=== PATIENT | male | born 1975 | race Caucasian/White ===

== ENCOUNTER 2016-08-15 22:41 | Emergency (ER) | payer MEDICAID, OTHER ==
[~2016-08-15] VITALS: Ht 175.3 cm; Wt 88.0 kg
[~2016-08-15 22:41] MED LIST: ALPR0.5T PO
[2016-08-15 22:48] VITALS: Ht 175.3 cm; Wt 88.0 kg
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
[2016-08-16] MEDS ORDERED: NAPR-260 PO (02:22)
--- NOTE | 2016-08-16 02:41 | RADRPT ---
PROCEDURE: Ultrasound examination of the right upper extremity veins with Doppler. CLINICAL INDICATION: Pain and swelling. TECHNIQUE: Multiple sonographic images of the right upper extremity veins were performed with gra y scale and color Doppler. COMPARISON: None. FINDINGS: The right internal jugular, subclavian, axillary, brachial, basilic, cephalic, radial and ulnar vein s demonstrate normal color flow, waveforms and compression. There is no evidence of deep venous thr ombosis. IMPRESSION: No evidence of deep venous thrombosis within the right upper extremity veins. .Jus Pabon MD, Date Time Electronically viewed and signed by .Jus Pabon MD, on 08/16/2016 02:41 .T/
--- NOTE | 2016-08-16 02:51 | QN ---
Documentation Comment Aby ALVARES signed out this patient to me pending ultrasound results, this was reviewed, it was normal, no blood clots noted, no dizziness from both is noted. Patient is discharged according to Aby Cerda instructions. Patient was advised vomit primary care doctor in 1-2 days for reevaluation of symptoms. Patient is stable upon discharge. PROCEDURE: Ultrasound examination of the right upper extremity veins with Doppler. CLINICAL INDICATION: Pain and swelling. TECHNIQUE: Multiple sonographic images of the right upper extremity veins were performed with may scale and color Doppler. COMPARISON: None. FINDINGS: The right internal jugular, subclavian, axillary, brachial, basilic, cephalic, radial and ulnar veins demonstrate normal color flow, waveforms and compression. There is no evidence of deep venous thrombosis. IMPRESSION: No evidence of deep venous thrombosis within the right upper extremity veins. .Jus Pabon MD, MD Date Time Electronically viewed and signed by .Jus Pabon MD, MD on 08/16/2016 02:41 .T/ CC: MELISSA CERDA PA-C, CARLA MAE T. NP Aug 16, 2016 02:51
== END 2016-08-16 03:30 | disposition home or self-care (01) ==
LOC: FTE 22:41
DX: R20.0 Anesthesia of skin (principal); R20.2 Paresthesia of skin
CPT/HCPCS: 93971; Z7502

== ENCOUNTER 2016-11-06 15:08 | Emergency (ER) | payer MEDICAID, OTHER ==
[~2016-11-06] VITALS: Ht 157.5 cm; Wt 88.0 kg
[~2016-11-06 15:08] MED LIST changes: +NAPR-260 PO
[2016-11-06 15:13] VITALS: Ht 157.5 cm; Wt 88.0 kg
[2016-11-06 19:18] LABS: ADD SCAN DIFF NO
[2016-11-06 19:22] LABS: BASOPHILS % 0.4 % (0.0-2.0); EOSINOPHILS # 0.1 10^3/ul (0.0-0.5); EOSINOPHILS % 1.7 % (0.0-7.0); HEMATOCRIT 42.3 % (42.0-52.0); LYMPHOCYTES # 2.6 10^3/ul (0.8-2.9); LYMPHOCYTES % 31.5 % (15.0-51.0); MEAN CORPUSCULAR HEMOGLOBIN 32.2 pg (29.0-33.0); MEAN CORPUSCULAR HGB CONC 35.5 g/dl (32.0-37.0); MEAN CORPUSCULAR VOLUME 90.8 fl (82.0-101.0); MEAN PLATELET VOLUME 10.8 fl (7.4-10.4); MONOCYTE # 0.5 10^3/ul (0.3-0.9); MONOCYTES % 6.3 % (0.0-11.0); NEUTROPHIL # 4.9 10^3/ul (1.6-7.5); NEUTROPHILS % 59.7 % (39.0-77.0); PLATELET COUNT 205 10^3/UL (140-415); RED BLOOD COUNT 4.66 10^6/ul (4.70-6.10); RED CELL DISTRIBUTION WIDTH 11.3 % (11.5-14.5); WHITE BLOOD COUNT 8.2 10^3/ul (4.8-10.8)
[2016-11-06 19:24] LABS: ADD UMIC NO; URINE BILIRUBIN (Dip) NEGATIVE (NEGATIVE); URINE BLOOD (Dip) NEGATIVE (NEGATIVE); URINE COLOR LT. YELLOW (YELLOW); URINE GLUCOSE (Dip) NEGATIVE (NEGATIVE); URINE KETONES (Dip) NEGATIVE (NEGATIVE); URINE LEUKOCYTE ESTERASE (Dip) NEGATIVE (NEGATIVE); URINE NITRITE (Dip) NEGATIVE (NEGATIVE); URINE TOTAL PROTEIN (Dip) NEGATIVE (NEGATIVE); URINE UROBILINOGEN (Dip) 0.2 E.U./dL (0.1-1.0)
[2016-11-06 19:31] LABS: ALBUMIN 5.1 g/dl (3.3-4.9); INR 0.99; PROTIME 13.1 Sec (12.2-14.2)
[2016-11-06 19:32] LABS: PARTIAL THROMBOPLASTIN TIME 28.9 Sec (25.0-35.0); POTASSIUM 3.6 mmol/L (3.5-5.1)
[2016-11-06 19:34] LABS: ALBUMIN/GLOBULIN RATIO 1.82; BILIRUBIN,INDIRECT 0.8 mg/dl (0-1.1); BILIRUBIN,TOTAL 0.8 mg/dl (0.2-1.3); CREATININE 1.04 mg/dl (0.61-1.24); TOTAL PROTEIN 7.9 g/dl (6.1-8.1)
[2016-11-06 19:35] LABS: CALCIUM 9.4 mg/dl (8.4-10.2)
--- NOTE | 2016-11-06 20:18 | RADRPT ---
PROCEDURE: CT scan of the abdomen and pelvis with and without IV contrast. CLINICAL INDICATION: Abdominal pain. TECHNIQUE: Thin section axial, coronal and sagittal images were performed through the abdomen and pelvis without contrast and then following the injection of 90 cc of Omnipaque-300 Low-dose protoco l imaging was utilized. One or more of the following dose reduction techniques were used: - Automated exposure control. - Adjustment of the mA and/or kV according to patient size. Use of iterative reconstruction technique. Radiation Dose: CTDI: 37.2 and DLP: 602 COMPARISON: No. FINDINGS: Lungs and pleural space: Normal. Heart: Normal. The liver, common bile duct and gallbladder: There is mild fatty infiltration of the liver. The ella er measures 17.6 cm AP. No hepatic mass or intrahepatic biliary ductal dilatation is identified. T he gallbladder and gallbladder wall are normal. The hepatic and portal veins are patent. Pancreas: Normal. Gastrointestinal: The stomach and small bowel loops are normal. There is fecal material in the asce nding and transverse colon consistent with constipation. There is no evidence of diverticulosis or diverticulitis. There is fecal material in the rectal ampulla. The vermiform appendix is not visua lized but there are no secondary signs of appendicitis. Kidneys and bladder : Third tiny subcapsular cyst off the inferior pole of the right kidney. The ki dneys are otherwise normal. No additional workup is needed. The adrenal glands and urinary bladder are normal. There is a left inguinal hernia which contains only fat. There is a small midline umb ilical hernia. Adrenal glands: Normal. Spleen: Normal. Lymph nodes: Normal. Reproductive system: The seminal vesicles and prostate gland are normal. Bony elements: There are small degenerative osteophytes in the lumbar spine. There is no evidence o f spondylolysis or spondylolisthesis. No acute bony fracture or bone metastasis is identified. Vasculature: Normal. IMPRESSION: 1. No acute intra-abdominal process is identified. 2. Constipation with fecal material in the ascending colon, transverse colon and rectal ampulla. RPTAT:AAJJ Physician Melvin Date Time Electronically viewed and signed by Physician Melvin on 11/06/2016 20:18 TRISTA/
[2016-11-06 20:54] VITALS: BP 118/74; PULSE 74; RESP 16
--- NOTE | 2016-11-06 22:25 | ERD ---
ER Documentation Chief Complaint Date/Time DATE: 11/06/16 TIME: 22:18 Chief Complaint Complains of right sided abdominal pain HPI 40-year-old male with no significant past medical history presents to the ED complaining of right abdominal pain associated with a rash that started 4 days after receiving a cervical epidural injection. States that he originally had a steroid injection on October 24, 2016 with no reaction. States that he also received 2 more injections on November 02, 2016 and states that it could be an allergic reaction to the injections. States that he initially started to feel numbness and tingling on the right side of his abdomen down his legs. Then he started to feel bloating sensation associated with nausea. Denies any vomiting , diarrhea, chest pain, shortness of breath, wheezing, fever, chills. Denies any blunt abdominal trauma. Patient reports normal daily bowel movements. Denies any constipation. ROS All systems reviewed and are negative except as per history of present illness. Medications Home Meds Active Scripts Naproxen* (Naprosyn*) 500 Mg Tablet, 500 MG PO BID Y for PAIN AND/OR INFLAMMATION, #30 TAB Prov:MELISSA CERDA PA-C 08/16/16 Alprazolam* (Xanax*) 0.5 Mg Tab, 0.5 MG PO Q8H Y for ANXIETY, #14 TAB Prov:OZIEL ALCANTAR DO 12/13/15 Allergies Allergies: Coded Allergies: No Known Allergy (Unverified , 12/13/15) PMhx/Soc History of Surgery: No Anesthesia Reaction: No Hx Neurological Disorder: No Hx Respiratory Disorders: No Hx Cardiac Disorders: No Hx Psychiatric Problems: No Hx Miscellaneous Medical Probl: No (PT. DENIES MEDICAL AND SURGICAL HX.) Hx Alcohol Use: Yes (OCCASSIONAL) Hx Substance Use: No Hx Tobacco Use: No Physical Exam Vitals Vital Signs Date Time Temp Pulse Resp B/P Pulse Ox O2 Delivery O2 Flow Rate FiO2 11/06/16 20:54 74 16 118/74 98 Room Air 11/06/16 15:13 98.9 86 20 129/70 97 Physical Exam Const: [id number], well-nourished. In no acute distress. Head: Atraumatic, normocephalic Eyes: Normal Conjunctiva without injection. No purulent discharge. ENT: Normal external ear, nose. Moist oropharynx without tonsillar exudates. Non -erythematous pharynx. Uvula midline. No drooling. No trismus. Neck: No cervical midline tenderness. Full range of motion. No meningismus. No cervical lymphadenopathy. No JVD. Resp: Clear to auscultation bilaterally. No wheezing, rhonchi, rales, or crackles. No accessory muscle use. No retractions. Cardio: Regular rate and rhythm. No murmurs, rubs or gallops. Abd: Soft, right mid abdominal tenderness to palpation, non distended. Normal bowel sounds. No palpable masses. No rebound tenderness. No guarding. Negative McBurney's point. Negative psoas sign. Negative obturator sign. Skin: 12 cm petechiae or rash noted on the right upper quadrant. No purulent discharge. No erythema. No edema. Back: No midline tenderness. No CVA tenderness. Ext: No cyanosis, or edema. Neur: Awake and alert. Normal gait. Normal coordination. Psych: Normal Mood and Affect Results 24 hrs Laboratory Tests Test 11/06/16 18:38 White Blood Count 8.210^3/ul Red Blood Count 4.6610^6/ul Hemoglobin 15.0g/dl Hematocrit 42.3% Mean Corpuscular Volume 90.8fl Mean Corpuscular Hemoglobin 32.2pg Mean Corpuscular Hemoglobin Concent 35.5g/dl Red Cell Distribution Width 11.3% Platelet Count 31758^3/UL Mean Platelet Volume 10.8fl Neutrophils % 59.7% Lymphocytes % 31.5% Monocytes % 6.3% Eosinophils % 1.7% Basophils % 0.4% Nucleated Red Blood Cells % 0.0/100WBC Neutrophils # 4.910^3/ul Lymphocytes # 2.610^3/ul Monocytes # 0.510^3/ul Eosinophils # 0.110^3/ul Basophils # 0.010^3/ul Nucleated Red Blood Cells # 0.010^3/ul Prothrombin Time 13.1Sec Prothrombin Time Ratio 1.0 INR International Normalized Ratio 0.99 Activated Partial Thromboplast Time 28.9Sec Urine Color LT. YELLOW Urine Clarity CLEAR Urine pH 6.0 Urine Specific [place] 1.010 Urine Ketones NEGATIVE Urine Nitrite NEGATIVE Urine Bilirubin NEGATIVE Urine Urobilinogen 0.2 E.U./dL Urine Leukocyte Esterase NEGATIVE Urine Hemoglobin NEGATIVE Urine Glucose NEGATIVE% Urine Total Protein NEGATIVE Sodium Level 142mmol/L Potassium Level 3.6mmol/L Chloride Level 102mmol/L Carbon Dioxide Level 27mmol/L Anion Gap 17 Blood Urea Nitrogen 18mg/dl Creatinine 1.04mg/dl Glucose Level 94mg/dl Calcium Level 9.4mg/dl Total Bilirubin 0.8mg/dl Direct Bilirubin 0.00mg/dl Indirect Bilirubin 0.8mg/dl Aspartate Amino Transf (AST/SGOT) 24IU/L Alanine Aminotransferase (ALT/SGPT) 38IU/L Alkaline Phosphatase 40IU/L Total Protein 7.9g/dl Albumin 5.1g/dl Globulin 2.80g/dl Albumin/Globulin Ratio 1.82 Lipase 213U/L Procedures/MDM This is a 40-year-old male patient with no significant past medical history presents to the ED complaining of right-sided abdominal pain that started 4 days ago. Patient is afebrile and nontoxic-appearing. Patient has normal vital signs. Due to the petechia-like rash noted on patient's right side of the abdomen, this case was discussed with my supervising physician, Dr. Yañez who stated that we can further workup patient. Patient was further worked up with CBC, CMP, lipase, UA, CT of abdomen and pelvis without contrast. CBC: No leukocytosis. No e/o of systemic infection. No e/o anemia. No thrombocytopenia. CMP: No e/o severe acidosis, alkalosis, renal failure, diabetic ketoacidosis, liver disease Lipase within normal limits. Urine: No leukocyte esterase, no nitrites, no hematuria. Coagulations within normal limits PROCEDURE: CT scan of the abdomen and pelvis with and without IV contrast. CLINICAL INDICATION: Abdominal pain. TECHNIQUE: Thin section axial, coronal and sagittal images were performed through the abdomen and pelvis without contrast and then following the injection of 90 cc of Omnipaque-300 Low-dose protocol imaging was utilized. One or more of the following dose reduction techniques were used: - Automated exposure control. - Adjustment of the mA and/or kV according to patient size. Use of iterative reconstruction technique. Radiation Dose: CTDI: 37.2 and DLP: 602 COMPARISON: No. FINDINGS: Lungs and pleural space: Normal. Heart: Normal. The liver, common bile duct and gallbladder: There is mild fatty infiltration of the liver. The liver measures 17.6 cm AP. No hepatic mass or intrahepatic biliary ductal dilatation is identified. The gallbladder and gallbladder wall are normal. The hepatic and portal veins are patent. Pancreas: Normal. Gastrointestinal: The stomach and small bowel loops are normal. There is fecal material in the ascending and transverse colon consistent with constipation. There is no evidence of diverticulosis or diverticulitis. There is fecal material in the rectal ampulla. The vermiform appendix is not visualized but there are no secondary signs of appendicitis. Kidneys and bladder : Third tiny subcapsular cyst off the inferior pole of the right kidney. The kidneys are otherwise normal. No additional workup is needed. The adrenal glands and urinary bladder are normal. There is a left inguinal hernia which contains only fat. There is a small midline umbilical hernia. Adrenal glands: Normal. Spleen: Normal. Lymph nodes: Normal. Reproductive system: The seminal vesicles and prostate gland are normal. Bony elements: There are small degenerative osteophytes in the lumbar spine. There is no evidence of spondylolysis or spondylolisthesis. No acute bony fracture or bone metastasis is identified. Vasculature: Normal. IMPRESSION: 1. No acute intra-abdominal process is identified. 2. Constipation with fecal material in the ascending colon, transverse colon and rectal ampulla. There is no acute intra-abdominal processes noted on the CAT scan with contrast noted at this time. Constipation with fecal material in ascending colon. Low suspicion for gastritis, GERD, peptic ulcer disease, cholecystitis, choledocholithiasis, cholangitis, pancreatitis, appendicitis, bowel obstruction , ileus, volvulus, nephrolithiasis, pyelonephritis, hepatitis, perforated viscus , diverticulitis, abdominal hernia, acute abdomen, mesenteric ischemia or other emergent conditions. Follow up with primary care physician in 1-2 days for referral to rubber compounder formulator. Instructed patient to return to the ED sooner for any worsening symptoms. Patient's questions were answered. Patient understood and agreed with discharge plan. Patient discharged stable. Departure Diagnosis: Primary Impression: Abdominal pain Abdominal location: right upper quadrant Qualified Code: R10.11 - Right upper quadrant abdominal pain Additional Impression: Rash and nonspecific skin eruption Condition: Stable Patient Instructions: Abdominal Pain, Self-Care for Skin Rashes Referrals: [facility] Usted se aguilera hecho un examen mdico de control que le indica que no est en otoniel condicin que requiera tratamiento urgente en el Departamento de Emergencia. Un estudio ms profundo y el tratamiento de ramirez condicin pueden esperar sin ningn riesgo hasta que usted sea atendida/o en el consultorio de ramirez mdico o otoniel cl saroj. Es responsabilidad suya arreglar otoniel brant para el seguimiento del jose f. MANEJO DE CONDICIONES NO URGENTES EN EL FUTURO 1) Si usted tiene un mdico de atencin primaria: Usted debera llamar a ramirez mdico de atencin primaria antes de venir al departamento de emergencia. Despus de las horas de consultorio, ramirez doctor o ramirez asociado/a est disponible por telfono. El mdico o enfermero de alexia en el servicio telefnico puede asesorarle por sarah medio para atender el problema, o jose f contrario se puede programar otoniel brant. 2) Si usted no tiene un mdico de atencin primaria: Llame al mdico o clnica de referencia que aparece abajo amy las horas de consultorio para hacer otoniel brant para que le vean. CLINICAS: [facility] [phone] [facility] [phone] [address] [facility] [phone] [address] [facility] [place] [id number] [phone] [facility] [place] [id number] [phone] [facility]. [phone] [facility] () Usted se aguilera hecho un examen mdico de control que le indica que no est en otoniel condicin que requiera tratamiento urgente en el Departamento de Emergencia. Un estudio ms profundo y el tratamiento de ramirez condicin pueden esperar sin ningn riesgo hasta que usted sea atendida/o en el consultorio de ramirez mdico o otoniel cl saroj. Es responsabilidad suya arreglar otoniel brant para el seguimiento del jose f. MANEJO DE CONDICIONES NO URGENTES EN EL FUTURO 1) Si usted tiene un mdico de atencin primaria: Usted debera llamar a raimrez mdico de atencin primaria antes de venir al departamento de emergencia. Despus de las horas de consultorio, ramirez doctor o ramirez asociado/a est disponible por telfono. El mdico o enfermero de alexia en el servicio telefnico puede asesorarle por sarah medio para atender el problema, o jose f contrario se puede programar otoniel brant. 2) Si usted no tiene un mdico de atencin primaria: Llame al mdico o condado institucions de referencia que aparece abajo amy las horas de consultorio para hacer otoniel brant para que le vean. SI USTED NO PUEDE PAGAR PARA YUNI UN MEDICO puede ir a: [facility] [id number] [place] [address] [facility] [address] [place] [address] [facility] [address] [place] [address] PARA SEMAJ [facility] [address] [place], [place] [id number] Additional Instructions: Llame al doctor MAANA y jerry otoniel BRANT PARA DENTRO DE 1-2 VELÁZQUEZ.Dgale a la secretaria que nosotros le instruimos hacer esta brant.Avise o llame si ramirez condicin se empeora antes de la brant. Regresa aqui si peor o no mejor. BAYRON SLAUGHTER PA-C November 06, 2016 22:25 BAYRON SLAUGHTER PA-C November 06, 2016 22:25 condicin se empeora antes de la brant. Regresa aqui si peor o no mejor. BAYRON SLAUGHTER PA-C November 06, 2016 22:25
== END 2016-11-06 20:55 | disposition home or self-care (01) ==
LOC: FTE 15:08
DX: R10.11 Right upper quadrant pain (principal); R21 Rash and other nonspecific skin eruption
CPT/HCPCS: 36415; 74177; 80053; 81003; 83690; 85025; 85610; 85730

== ENCOUNTER 2017-06-13 09:35 | Emergency (ER) | payer SELFPAY ==
[~2017-06-13] VITALS: Wt 84.1 kg
[2017-06-13] MEDS ORDERED: LORA-441 PO (11:17)
--- NOTE | 2017-06-13 11:21 | ERD ---
ER Documentation Chief Complaint Chief Complaint ativan refill HPI 41-year-old male history of anxiety presents emergency room for medication refill. The patient has a prescription bottle that was given to him for Xanax 0.5 mg, was prescribed a couple months ago by his primary care doctor. He states that he ran out of the medication needs a refill. Symptoms of feeling hot, shaky, nervous and has been feeling this way for the past 3 days. He denies chest pain, shortness breath, dizziness, palpitations ROS All systems reviewed and are negative except as per history of present illness. Medications Home Meds Active Scripts Alprazolam* (Xanax*) 0.5 Mg Tab, 0.5 MG PO Q8H Y for ANXIETY, #7 TAB Prov:AVA ULLOA PA-C 06/13/17 Naproxen* (Naprosyn*) 500 Mg Tablet, 500 MG PO BID Y for PAIN AND/OR INFLAMMATION, #30 TAB Prov:MELISSA CERDA PA-C 08/16/16 Alprazolam* (Xanax*) 0.5 Mg Tab, 0.5 MG PO Q8H Y for ANXIETY, #14 TAB Prov:OZIEL ALCANTAR DO 12/13/15 Allergies Allergies: Coded Allergies: No Known Allergy (Unverified , 12/13/15) PMhx/Soc History of Surgery: No Anesthesia Reaction: No Hx Neurological Disorder: No Hx Respiratory Disorders: No Hx Cardiac Disorders: No Hx Psychiatric Problems: No Hx Miscellaneous Medical Probl: No (PT. DENIES MEDICAL AND SURGICAL HX.) Hx Alcohol Use: Yes (OCCASSIONAL) Hx Substance Use: No Hx Tobacco Use: No Physical Exam Vitals Vital Signs Date Time Temp Pulse Resp B/P Pulse Ox O2 Delivery O2 Flow Rate FiO2 06/13/17 09:36 98.9 79 20 121/63 99 Physical Exam General: Well-developed, well-nourished. The patient appears in no acute distress. HEENT: Head is normocephalic, atraumatic. No scleral icterus. Neck: Supple. Nontender. Lungs: Clear to auscultation. Normal air movement. Heart: Regular rate and rhythm. S1 and S2 are normal. No murmurs, gallops, or rubs. Abdomen: Soft, nontender, nondistended. Bowel sounds are normoactive. Extremities: No clubbing or cyanosis. Normal pulses. Moving extremities x 4. No weakness. Neurologic: Alert and oriented 3. No focal deficits. Skin: Normal turgor. No rash or lesions. Psych: Patient is anxious appearing. Procedures/MDM 41-year-old male comes in with acute anxiety, the patient will be given a short course of xanax # 10, the patient states that his primary care doctor is not available until tomorrow. He was instructed to recheck with them, he will be given a short course of medication for acute anxiety symptoms, was also instructed that refill should be done to his primary care doctor multiple prescribers should not be giving this medication to him given that it is a controlled substance. Patient was aware. I have also encouraged him to talk to his PCP regarding starting an antidepressant. Symptoms are not consistent with acute coronary syndrome, dissection, patient is neurologically neurovascularly intact and is appropriate to be discharged home. Departure Diagnosis: Primary Impression: Encounter for medication refill Additional Impression: Anxiety Condition: Good Patient Instructions: Anxiety Reaction Additional Instructions: Follow up with your doctor for furhter refills. Return sooner if your condition worsens before then. AVA ULLOA PA-C Jun 13, 2017 11:21
[2017-06-13] MEDS ORDERED: ALPR0.5T PO (11:38)
== END 2017-06-13 11:41 | disposition home or self-care (01) ==
LOC: FTE 09:35
DX: Z76.0 Encounter for issue of repeat prescription (principal); F41.9 Anxiety disorder, unspecified
CPT/HCPCS: 82962; 99281